=== PATIENT | female | born 2000 | race Two or more races ===

== ENCOUNTER → 2024-01-14 | Outpatient (CLI) | payer BC ==
[2024-01-14 08:14] LABS: Basophils # (auto) 0.1 10 ^3/uL (0-0.2); Basophils % (auto) 0.9 % (0.0-2.0); Eosinophils # (auto) 0.4 10 ^3/uL (0-0.8); Hematocrit 39.6 % (36.0-46.0); Hemoglobin 13.1 g/dL (12.2-16.2); Lymphocytes # (auto) 1.6 10 ^3/uL (0.4-5.4); Lymphocytes % (auto) 20.9 % (10.0-50.0); Mean Corpuscular Hemoglobin 27.6 pg (28.0-32.0); Mean Corpuscular Hgb Conc. 33.1 g/dL (32.0-36.0); Mean Corpuscular Volume 83.2 fL (80.0-100.0); Monocytes # (auto) 0.5 10 ^3/uL (0-1.3); Monocytes % (auto) 7.2 % (0.0-12.0); Neutrophils # (auto) 4.9 10 ^3/uL (1.6-8.6); Red Blood Cells 4.76 10^6/uL (4.0-5.20); Red Cell Distribution Width 13.6 % (11.8-14.3); Urine Bacteria NONE SEEN /hpf (None Seen); Urine Blood Negative /uL (Negative); Urine Clarity Clear (Clear); Urine Color Yellow (Yellow); Urine Mucus FEW (None Seen); Urine Protein, UAD Negative (Negative); Urine Specific Gravity 1.021 (1.001-1.035); Urine Urobilinogen Normal (Negative); Urine WBC 1 /hpf (0 - 5); Urine pH 6.5 (5.0-8.0); White Blood Cell 7.4 10^3/uL (4.4-10.8)
[2024-01-14 08:58] LABS: Alanine Aminotransferase 21 U/L (7-40); Alkaline Phosphatase 94 U/L (46-116); Anion Gap 6 (5-15); BUN/Creatinine Ratio 15.1 (10.0-20.0); Blood Urea Nitrogen 11 mg/dL (9-23); Calcium 9.7 mg/dL (8.5-10.1); Carbon Dioxide 26 mmol/L (20-30); Chloride 107 mmol/L (98-107); Glucose 97 mg/dL (74-106); LDL Cholesterol 95 mg/dL (< 100); Sodium 139 mmol/L (136-145); Triglycerides 45 mg/dL (< 150)
[2024-01-14 08:59] LABS: Albumin 4.8 g/dL (3.2-4.8); Aspartate Aminotransferase 25 U/L (13-40); Bilirubin, Total 0.3 mg/dL (0.2-1.0); HDL Cholesterol 52 mg/dL (40-59); Total Protein 7.7 g/dL (5.7-8.2)
[2024-01-14 09:00] LABS: % Iron Saturation 14.2 % (15-50); Ferritin 19.2 ng/mL (10-291); Follicle Stimulating Hormone 5.8 IU/L (SEE BELOW); Leuteinizing Hormone 17.6 IU/L
[2024-01-14 09:01] LABS: Folate (Folic Acid) 12.17 ng/mL (>5.38)
[2024-01-14 09:14] LABS: Cholesterol 139 mg/dL (< 200)
[2024-01-15 08:06] LABS: Cancer Antigen (CA) 125 9.2 U/mL (0.0-38.1); Estradiol 48.9 pg/mL (.); Testosterone 47 ng/dL (13-71)
== END | disposition home or self-care (01) ==
LOC: LAB 07:36
PROVIDERS: ATTEND Obstetrics & Gynecology
DX: Z00.00 Encounter for general adult medical examination without abnormal findings (principal); N63.20 Unspecified lump in the left breast, unspecified quadrant; N39.0 Urinary tract infection, site not specified; Z15.01 Genetic susceptibility to malignant neoplasm of breast; Z80.41 Family history of malignant neoplasm of ovary
CPT/HCPCS: 36415; 80053; 80061; 81001; 82306; 82607; 82670; 82728; 82746; 83001; 83002; 83036; 83540; 83550; 84402; 84403; 84443; 85025; 86304; 87086

== ENCOUNTER 2024-03-05 07:56 | Emergency (ER) | payer BC, OTHER ==
[~2024-03-05] VITALS: Ht 170.2 cm; Wt 90.4 kg
[2024-03-05] MEDS ORDERED: PRED20TA2 PO (10:55)
[2024-03-05] MEDS ORDERED: BENZ100C97 PO (10:55)
[2024-03-05] MEDS ORDERED: DOXY1CAP57 PO (10:55)
[2024-03-05 11:09] VITALS: BP 130/87; PULSE 90; RESP 20; TEMP 98; O2SAT 96
== END 2024-03-05 11:17 | disposition home or self-care (01) ==
LOC: ER 07:56
DX: J20.9 Acute bronchitis, unspecified (principal); R07.89 Other chest pain
CPT/HCPCS: 71046

== ENCOUNTER → 2024-05-09 | Outpatient (CLI) | payer BC ==
[~2024-05-09] MED LIST: BENZ100C97 PO; DOXY1CAP57 PO; PRED20TA2 PO
== END | disposition home or self-care (01) ==
LOC: LAB 12:41
PROVIDERS: ATTEND Obstetrics & Gynecology
DX: Z33.1 Pregnant state, incidental (principal); Z72.51 High risk heterosexual behavior
CPT/HCPCS: 36415; 84702

== ENCOUNTER → 2024-06-28 | Outpatient (CLI) | payer BC | END | disposition home or self-care (01) | LOC: LAB 15:32 | PROVIDERS: ATTEND Obstetrics & Gynecology | DX: Z34.00 Encounter for supervision of normal first pregnancy, unspecified trimester (principal) | CPT/HCPCS: 36415; 84702 ==

== ENCOUNTER → 2024-07-03 | Outpatient (CLI) | payer BC, MEDICAID ==
[~2024-07-03] VITALS: Ht 165.1 cm; Wt 83.0 kg
[~2024-07-03] MED LIST changes: +ALB5IS NEB; +ALBUAER3 IN; +BUDE1AER6 IN; +PAR20T PO
[2024-07-03 10:14] LABS: Basophils # (auto) 0.1 10 ^3/uL (0-0.2); Basophils % (auto) 0.9 % (0.0-2.0); Eosinophils # (auto) 0.3 10 ^3/uL (0-0.8); Eosinophils % (auto) 4.6 % (0.0-7.0); Hematocrit 40.8 % (36.0-46.0); Hemoglobin 13.3 g/dL (12.2-16.2); Lymphocytes # (auto) 1.7 10 ^3/uL (0.4-5.4); Lymphocytes % (auto) 25.6 % (10.0-50.0); Mean Corpuscular Hemoglobin 27.6 pg (28.0-32.0); Mean Corpuscular Hgb Conc. 32.6 g/dL (32.0-36.0); Mean Corpuscular Volume 84.6 fL (80.0-100.0); Monocytes # (auto) 0.6 10 ^3/uL (0-1.3); Monocytes % (auto) 8.5 % (0.0-12.0); Neutrophils # (auto) 4.1 10 ^3/uL (1.6-8.6); Neutrophils % (auto) 60.4 % (37.0-80.0); Nucleated Red Blood Cells % 0.1 %; Platelet Count (auto) 381 10^3/uL (140-450); Red Blood Cells 4.82 10^6/uL (4.0-5.20); Red Cell Distribution Width 14.5 % (11.8-14.3); White Blood Cell 6.8 10^3/uL (4.4-10.8)
[2024-07-03 10:27] LABS: Alanine Aminotransferase 28 U/L (7-40); Albumin 4.5 g/dL (3.2-4.8); Alkaline Phosphatase 59 U/L (46-116); Anion Gap 2 (5-15); Aspartate Aminotransferase 30 U/L (13-40); Bilirubin, Total 0.5 mg/dL (0.2-1.0); Calcium 9.8 mg/dL (8.7-10.4); Carbon Dioxide 28 mmol/L (20-30); Chloride 108 mmol/L (98-107); Glucose 96 mg/dL (74-106); Potassium 3.6 mmol/L (3.5-5.1); Sodium 138 mmol/L (136-145); Total Protein 7.2 g/dL (5.7-8.2)
[2024-07-03 10:36] LABS: Blood Urea Nitrogen < 5 mg/dL (9-23)
[2024-07-03 10:54] LABS: INR 1.01 (0.9-1.15); Partial Thromboplastin Time 25.2 SEC (24.5-34.5); Prothrombin Time 10.7 sec (9.3-11.8)
== END | disposition home or self-care (01) ==
LOC: LAB 09:16 → EDSTATUS 08-02 08:30
PROVIDERS: ATTEND Surgery
DX: N63.21 Unspecified lump in the left breast, upper outer quadrant (principal); Z53.8 Procedure and treatment not carried out for other reasons; Z79.899 Other long term (current) drug therapy; Z88.0 Allergy status to penicillin; Z88.8 Allergy status to other drugs, medicaments and biological substances; Z80.3 Family history of malignant neoplasm of breast
CPT/HCPCS: 36415; 80053; 84702; 85025; 85610; 85730

== ENCOUNTER → 2024-10-31 | Outpatient (CLI) | payer BC ==
[~2024-10-31] MED LIST changes: -BENZ100C97 PO; -DOXY1CAP57 PO; -PRED20TA2 PO
[2024-10-31 11:48] LABS: % Iron Saturation 10.2 % (15-50); Alanine Aminotransferase 27 U/L (7-40); Alkaline Phosphatase 90 U/L (46-116); Anion Gap 6 (5-15); Aspartate Aminotransferase 21 U/L (13-40); BUN/Creatinine Ratio 14.1 (10.0-20.0); Blood Urea Nitrogen 10 mg/dL (9-23); Calcium 10.1 mg/dL (8.7-10.4); Carbon Dioxide 27 mmol/L (20-31); Chloride 106 mmol/L (98-107); Glucose 94 mg/dL (74-106); Potassium 3.9 mmol/L (3.5-5.1); Sodium 139 mmol/L (136-145)
[2024-10-31 11:49] LABS: Bilirubin, Total 0.3 mg/dL (0.2-1.0); Total Protein 7.9 g/dL (5.7-8.2)
[2024-10-31 11:51] LABS: Follicle Stimulating Hormone 10.04 IU/L (SEE BELOW)
[2024-10-31 11:52] LABS: Basophils # (auto) 0.1 10 ^3/uL (0-0.2); Eosinophils # (auto) 0.2 10 ^3/uL (0-0.8); Eosinophils % (auto) 3.5 % (0.0-7.0); Ferritin 9.2 ng/mL (10-291); Folate (Folic Acid) 14.56 ng/mL (>5.38); Hematocrit 39.3 % (36.0-46.0); Hemoglobin 13.4 g/dL (12.2-16.2); Lymphocytes # (auto) 1.8 10 ^3/uL (0.4-5.4); Lymphocytes % (auto) 26.5 % (10.0-50.0); Mean Corpuscular Volume 82.3 fL (80.0-100.0); Monocytes # (auto) 0.5 10 ^3/uL (0-1.3); Monocytes % (auto) 6.8 % (0.0-12.0); Neutrophils # (auto) 4.2 10 ^3/uL (1.6-8.6); Neutrophils % (auto) 62.2 % (37.0-80.0); Platelet Count (auto) 394 10^3/uL (140-450); Prolactin 11.18 ng/mL (2.8-29.2); Red Blood Cells 4.78 10^6/uL (4.0-5.20); Red Cell Distribution Width 13.9 % (11.8-14.3); White Blood Cell 6.8 10^3/uL (4.4-10.8)
[2024-10-31 11:53] LABS: Albumin 4.9 g/dL (3.2-4.8); Beta HCG, Quantitative 1.5 mIU/mL (1.5-4.2); Free T4 (Free Thyroxine) 1.12 ng/dL (0.89-1.76); Thyroid Stimulating Hormone 2.13 uIU/mL (0.55-4.78)
[2024-11-01 07:07] LABS: RPR Non Reactive (Non Reactive)
[2024-11-01 08:06] LABS: Estradiol 79.4 pg/mL (.); Testosterone 75 ng/dL (13-71)
== END | disposition home or self-care (01) ==
LOC: LAB 11:01
PROVIDERS: ATTEND Obstetrics & Gynecology
DX: Z11.3 Encounter for screening for infections with a predominantly sexual mode of transmission (principal); E28.2 Polycystic ovarian syndrome; Z87.42 Personal history of other diseases of the female genital tract
CPT/HCPCS: 36415; 80053; 82607; 82626; 82670; 82728; 82746; 83001; 83002; 83036; 83540; 83550; 84144; 84146; 84402; 84403; 84439; 84443; 84702; 85025; 86592; 86703; 86850; 86900; 86901; 87902

== ENCOUNTER 2025-02-14 06:03 | Day surgery (SDC) | payer BC, MEDICAID ==
[2025-02-12 12:37] LABS: Basophils # (auto) 0.1 10 ^3/uL (0-0.2); Eosinophils # (auto) 0.3 10 ^3/uL (0-0.8); Hemoglobin 12.9 g/dL (12.2-16.2); Lymphocytes # (auto) 1.8 10 ^3/uL (0.4-5.4)
[2025-02-12 12:41] LABS: Basophils % (auto) 0.6 % (0.0-2.0); Eosinophils % (auto) 3.7 % (0.0-7.0); Hematocrit 39.1 % (36.0-46.0); Lymphocytes % (auto) 22.1 % (10.0-50.0); Mean Corpuscular Hemoglobin 26.5 pg (28.0-32.0); Mean Corpuscular Volume 80.4 fL (80.0-100.0); Monocytes # (auto) 0.4 10 ^3/uL (0-1.3); Monocytes % (auto) 5.3 % (0.0-12.0); Neutrophils # (auto) 5.6 10 ^3/uL (1.6-8.6); Neutrophils % (auto) 68.3 % (37.0-80.0); Nucleated Red Blood Cells % 0.1 %; Platelet Count (auto) 399 10^3/uL (140-450); Red Blood Cells 4.86 10^6/uL (4.0-5.20); Red Cell Distribution Width 14.8 % (11.8-14.3); White Blood Cell 8.2 10^3/uL (4.4-10.8)
[2025-02-12 12:42] LABS: Urine Bacteria FEW /hpf (None Seen); Urine Blood TRACE /uL (Negative); Urine Clarity Turbid (Clear); Urine Color Yellow (Yellow); Urine Mucus FEW (None Seen); Urine Protein, UAD TRACE (Negative); Urine Squamous Epithelial Cell MOD /hpf (<5); Urine Urobilinogen Normal (Negative); Urine WBC 2 /HPF (0-5); Urine pH 5.5 (5.0-9.0)
[2025-02-12 13:11] LABS: INR 1.02 (0.9-1.15); Partial Thromboplastin Time 27.9 SEC (24.5-34.5); Prothrombin Time 10.8 sec (9.3-11.8)
[2025-02-12 13:39] LABS: Alanine Aminotransferase 22 U/L (7-40); Alkaline Phosphatase 79 U/L (46-116); Anion Gap 7 (5-15); Aspartate Aminotransferase 17 U/L (13-40); BUN/Creatinine Ratio 12.5 (10.0-20.0); Blood Urea Nitrogen 9 mg/dL (9-23); Carbon Dioxide 25 mmol/L (20-31); Potassium 3.7 mmol/L (3.5-5.1); Sodium 139 mmol/L (136-145); Total Protein 8.1 g/dL (5.7-8.2)
[2025-02-12 13:40] LABS: Bilirubin, Total 0.4 mg/dL (0.2-1.0)
[2025-02-12 13:45] LABS: Albumin 5.2 g/dL (3.2-4.8); Chloride 107 mmol/L (98-107); Glucose 126 mg/dL (74-106)
[~2025-02-14] VITALS: Ht 165.1 cm; Wt 86.2 kg
[~2025-02-14 06:03] MED LIST changes: -ALB5IS NEB; +CETI10TA2 PO; +ETON68IM3 SC; -PAR20T PO
[2025-02-14] MEDS ORDERED: ceFAZolin 2 GM/D5W100ml 0 ML IV ONE (06:24)
[2025-02-14] MEDS ORDERED: levoFLOXacin 500MG 100 ML IV ONE (06:31)
[2025-02-14] MEDS ORDERED: KETAMINE 50mg/ML 1ml syringe ONE (07:00)
[2025-02-14] MEDS ORDERED: SODIUM CHLORIDE LOCK 10 ML ONE (07:01)
[2025-02-14] MEDS ORDERED: BUPIVACAINE 0.5% P/F INJ 10 ML VIAL ONE (07:01)
[2025-02-14] MEDS ORDERED: LIDOCAINE HCL 2% TOP JELLY 5ML TOP ONE (07:01)
[2025-02-14] MEDS ORDERED: MIDAZOLAM HCL 2MG/2ML 2ml VIAL (1mg/ml) ONE (07:01)
[2025-02-14] MEDS ORDERED: ONDANSETRON HCL 4 MG/2 ML VIAL ONE (07:01)
[2025-02-14] MEDS ORDERED: PROPOFOL 10 MG/ML 20 ML IV ONE (07:01)
[2025-02-14] MEDS ORDERED: LIDOCAINE 1% INJ PF 5ML AMP ONE (07:01)
[2025-02-14] MEDS ORDERED: HYDROmorphone HCL 2 MG/ML VL/or syr ONE (07:01)
[2025-02-14] MEDS ORDERED: fentaNYL CITRATE 100 MCG/2 ML VL ONE (07:01)
[2025-02-14] MEDS ORDERED: DexAMETHasone SOD PHOS 10MG/1ML VIAL INJ ONE (07:01)
[2025-02-14] MEDS ORDERED: LIDOCAINE W/ EPINEPHRINE 1% 20ML VIAL ONE (07:01)
[2025-02-14] MEDS ORDERED: SUCCINYLCHOLINE CHLORIDE 20 MG/ML 10ML VIAL IV ONE (07:18)
[2025-02-14 08:20] VITALS: PULSE 87; RESP 14; TEMP 98.4; O2SAT 99
--- NOTE | 2025-02-14 08:42 | DVHOP ---
DATE OF SURGERY: 02/14/2025 PREOPERATIVE DIAGNOSIS: Left breast mass. POSTOPERATIVE DIAGNOSIS: Left breast mass. SURGEON: Ry Howe MD. FIELD SERVICES ANALYST: Jeremias Duong. ANESTHESIA: General endotracheal. ANESTHESIOLOGIST: Dr. Merlos. PROCEDURE: Excision of mass of left breast. DESCRIPTION OF PROCEDURE: Under general anesthesia, with the patient's skin prepped and draped following localization of the mass by the patient prior to the operation and marking of the skin prior of the operation, the incision was made over the palpable mass within the left breast, in the lateral aspect of the left upper quadrant, within the axillary tail of Ortiz. The lesion was palpated through the incision and grasped with an Allis forcep. The lesion and surrounding breast tissue was excised and submitted for histopathologic examination. It had the appearance of a fibroadenoma. The wound was then irrigated, hemostasis meticulously accomplished. A large vessel that was adjacent to the lesion was ligated with a 2-0 suture. Following complete hemostasis, the wound was approximated using 2-0 Monocryl sutures, subcuticular suture, and Dermabond glue and Steri-Strips were used for approximation of the skin. The patient remained stable throughout the procedure and left the operating room following an accurate needle and sponge count. Her mother Socorro was thoroughly informed by phone. Ry Howe MD PF/ARV TID: [id number] RECEIPT: [id number]
[2025-02-14] MEDS ORDERED: MORPHINE SULFATE 4 MG/ML SYR/VIAL IV PRN (08:45)
[2025-02-14] MEDS ORDERED: HYDROmorphone HCL 2 MG/ML VL/or syr IV PRN ×2 (08:45)
[2025-02-14 09:20] VITALS: BP 157/100; PULSE 93; RESP 14; O2SAT 10
[2025-02-14] MEDS ORDERED: KETOROLAC TROMETH 30 MG/ML 1ML VIAL IV ONE (10:00)
[2025-02-14] MEDS ORDERED: ONDANSETRON HCL 4 MG/2 ML VIAL IV ONE (10:00)
[2025-02-14] MEDS ORDERED: MORPHINE SULFATE INJ 2 MG/ml SYRG IV PRN (10:30)
== END 2025-02-14 09:30 | disposition home or self-care (01) ==
LOC: EEVIPCON → SUR 06:03
PROVIDERS: ATTEND Surgery
DX: N63.21 Unspecified lump in the left breast, upper outer quadrant (principal); D24.2 Benign neoplasm of left breast; J45.909 Unspecified asthma, uncomplicated; G47.33 Obstructive sleep apnea (adult) (pediatric); F41.8 Other specified anxiety disorders; F31.9 Bipolar disorder, unspecified; E66.9 Obesity, unspecified; Z68.31 Body mass index [BMI] 31.0-31.9, adult; Z79.899 Other long term (current) drug therapy; Z98.890 Other specified postprocedural states; Z87.891 Personal history of nicotine dependence; Z88.0 Allergy status to penicillin; Z88.8 Allergy status to other drugs, medicaments and biological substances
CPT/HCPCS: 19125; 36415; 80053; 81001; 84702; 85025; 85610; 85730; 88305; 88331; J0330; J1100; J1171; J1956; J2250; J2405; J2704; J3010; J3490

== ENCOUNTER → 2025-05-17 | Outpatient (CLI) | payer BC, MEDICAID ==
[2025-05-17 08:42] LABS: Hematocrit 41.7 % (36.0-46.0); Hemoglobin 13.7 g/dL (12.2-16.2); Mean Corpuscular Hemoglobin 26.5 pg (28.0-32.0); Mean Corpuscular Volume 80.5 fL (80.0-100.0); Nucleated Red Blood Cells % 0.1 %
[2025-05-17 08:57] LABS: Alanine Aminotransferase 25 U/L (7-40); Alkaline Phosphatase 96 U/L (46-116); Calcium 9.9 mg/dL (8.7-10.4); Carbon Dioxide 20 mmol/L (20-31); Triglycerides 100 mg/dL (< 150)
[2025-05-17 08:58] LABS: Anion Gap 11 (5-15); BUN/Creatinine Ratio 11.9 (10.0-20.0); Cholesterol 131 mg/dL (< 200); HDL Cholesterol 51 mg/dL (40-59); Potassium 4.1 mmol/L (3.5-5.1); Sodium 142 mmol/L (136-145); Total Protein 7.5 g/dL (5.7-8.2)
[2025-05-17 09:06] LABS: Albumin 4.8 g/dL (3.2-4.8); Bilirubin, Total 0.2 mg/dL (0.2-1.0); Blood Urea Nitrogen 8 mg/dL (9-23); Chloride 111 mmol/L (98-107); Glucose 108 mg/dL (74-106)
[2025-05-17 11:21] LABS: Ferritin 8.3 ng/mL (10-291)
[2025-05-18 11:49] LABS: Hepatitis A Total Antibody Positive (Negative); Hepatitis B Surface Antigen Negative (Negative); Hepatitis C Antibody Negative (Negative)
[2025-05-19 08:07] LABS: Chlamydia Trachomatis, NAA Negative (Negative); Neisseria gonorrhoeae, NAA Negative (Negative)
== END | disposition home or self-care (01) ==
LOC: LAB 08:21
PROVIDERS: ATTEND Licensed Practical Nurse
DX: Z13.1 Encounter for screening for diabetes mellitus (principal); Z13.6 Encounter for screening for cardiovascular disorders; F32.0 Major depressive disorder, single episode, mild; E55.9 Vitamin D deficiency, unspecified; Z00.01 Encounter for general adult medical examination with abnormal findings; Z13.220 Encounter for screening for lipoid disorders; Z11.3 Encounter for screening for infections with a predominantly sexual mode of transmission
CPT/HCPCS: 36415; 80053; 80061; 82043; 82306; 82607; 82728; 83036; 84443; 85025; 86703; 86704; 86706; 86708; 86780; 86803; 87340

== ENCOUNTER 2025-06-01 12:10 | Emergency (ER) | payer BC, MEDICAID ==
[~2025-06-01] VITALS: Ht 165.1 cm; Wt 92.6 kg
[2025-06-01 12:30] VITALS: BP 139/95; TEMP 99
--- NOTE | 2025-06-01 13:51 | ED.PDOC ---
GI ASSESSMENT HPI Comments 24-year-old female with PMHx HTN presents with a chief complaint of abdominal pain with associated black stool, rectal bleeding, nausea and vomiting. Patient mentions that she gets her abdominal pain when she feels the need to have a bowel movement. Patient also mentions that her family has a history of colon cancer. Patient reports that sometimes her stool is bright red and bloody and other times it is black in color. Chief Complaint: GI Bleed Time Seen by MD: 13:19 Primary Care Provider: [facility] Reviewed Notes: Medications, Allergies Allergies: Coded Allergies: Penicillins (Unverified Allergy, Intermediate, Rash,Hives , 02/12/25) Amoxicillin (Verified Allergy, Unknown, 02/11/24) Home Meds Reported Medications Etonogestrel (NEXPLANON) Unknown Strength Imp, SC, IMP 02/12/25 Cetirizine Hcl (Kls Aller-Tess) Unknown Strength Tab, PO DAILY, #30 TAB 3 Refills 02/12/25 Doqtqunhqg-Twyjcedpshqjqa-Nldm ([employer] 160-9-4.8 Mcg/Act) Unknown Strength Aer, IN, AER 08/01/24 Albuterol Sulfate (VENTOLIN MDI) Unknown Strength Ih, IN PRN, INH 08/01/24 Information Source: Patient Mode of Arrival: Ambulatory Timing: Months Duration: Intermittent Prehospital treatment: None Vomitus: Food Particles Stool: Blood Streaked, Black Severity: Moderate Recent: None Recent Hx of: None Pain Location: Diffuse Associated sign and symptoms: Nausea, Vomiting, Melena, Abdominal Pain, Blood in Stool Past Medical History PAST MEDICAL HISTORY: Denies Surgical History: Denies all surgeries BUILDING MAINTENANCE MECHANIC History: No Pertinent BUILDING MAINTENANCE MECHANIC History Family History Family History: Reviewed,noncontributory to illness Social History Smoker: Non-Smoker Alcohol: Denies ETOH Use Drugs: Denies Drug Use Lives In: Home Constitutional: denies: chills, diaphoresis, fatigue, fever, malaise, sweats, weakness, others EENTM: denies: blurred vision, double vision, ear bleeding, ear discharge, ear drainage, ear pain, ear ringing, eye pain, eye redness, hearing loss, mouth pain, mouth swelling, nasal discharge, nose bleeding, nose congestion, nose pain, photophobia, tearing, throat pain, throat swelling, voice changes, others Respiratory: denies: cough, hemoptysis, orthopnea, SOB at rest, shortness of breath, SOB with excertion, stridor, wheezing, others Cardiovascular: denies: chest pain, dizzy spells, diaphoresis, Dyspnea on exertion, edema, irregular heart beat, left arm pain, lightheadedness, palpitations, PND, syncope, others Gastrointestinal: reports: abdominal pain, melena, nausea, rectal bleeding, vo miting; denies: abdomen distended, blood streaked bowels, constipated, diarrhea, dysphagia, difficulty swallowing, hematemesis, poor appetite, poor fluid intake, rectal pain, others Genitourinary: denies: abnormal vagina bleeding, burning, dyspareunia, dysuria, flank pain, frequency, hematuria, incontinence, pain, , vagina discharge, urgency, others Neurological: denies: dizziness, fainting, headache, left sided numbness, left sided weakness, numbness, paresthesia, pre-existing deficit, right sided numbness, right sided weakness, seizure, speech problems, tingling, tremors, weakness, others Musculoskeletal: denies: back pain, gout, joint pain, joint swelling, muscle pain, muscle stiffness, neck pain, others Integumetry: denies: bruises, change in color, change in hair/nails, dryness, laceration, lesions, lumps, rash, wounds, others Allergic/Immunocompromised: denies: Difficulty Healing, Frequent Infections, Hives, Itching, others Hematologic/Lymphatic: denies: anemia, blood clots, easy bleeding, easy bruising, swollen glands, others Endocrine: denies: excessive hunger, excessive sweating, excessive thirst, excessive urination, flushing, intolerance to cold, intolerance to heat, unexplained weight gain, unexplained weight loss, others Psychiatric: denies: anxiety, bipolar disorder, depression, hopeless, panic disorder, schizophrenia, sleepless, suicidal, others All Other Systems: Reviewed and Negative Physical Exam General Appearance: No Apparent Distress, Normal HEENT: Normal ENT Inspection, Pharynx Normal, TMs Normal Neck: Full Range of Motion, Non-Tender, Normal, Normal Inspection Respiratory: Chest Non-Tender, Lungs Clear, No Accessory Muscle Use, No Respiratory Distress, Normal Breath Sounds Cardiovascular: No Edema, No JVD, No Murmur, No Gallop, Normal Peripheral Pulses, Regular Rate/Rhythm Breast Exam: Deferred Gastrointestinal: No Organomegaly, Non Tender, No Pulsatile Mass, Normal Bowel Sounds, Soft Genitalia: Deferred Pelvic: Deferred Rectal: Deferred Extremities: No calf tenderness, Normal capillary refill, Normal inspection, Normal range of motion, Non-tender, No pedal edema Musculoskeletal : Apperance: Normal Neurologic: Alert, inventory control supervisor II-XII nml as Tested, No Motor Deficits, Normal Affect, Normal Mood, No Sensory Deficits Cerebellar Function: Normal Reflexes: Normal Skin: Dry, Normal Color, Warm Lymphatic: No Adenopathy Was a procedure done? Was a procedure done?: No GI differential Dx Differential Diagnosis: Gastritis/PUD, Gastroenteritis, GI hemorrhage, UTI X-Ray, Labs, Meds, VS Vital Signs Date Time Temp Pulse Resp B/P (MAP) Pulse Ox O2 Delivery O2 Flow Rate FiO2 06/01/25 14:27 74 16 96 Room Air* 0 21 06/01/25 12:30 99.0 96 16 139/95 (110) 98 99.0 Lab Test 06/01/25 13:57 06/01/25 12:57 Range/Units White Blood Count 6.0 4.4-10.8 10^3/uL Red Blood Count 4.77 4.0-5.20 10^6/uL Hemoglobin 12.7 12.2-16.2 g/dL Hematocrit 38.5 36.0-46.0 % Mean Corpuscular Volume 80.9 80.0-100.0 fL Mean Corpuscular Hemoglobin 26.8 L 28.0-32.0 pg Mean Corpuscular Hemoglobin Concent 33.1 32.0-36.0 g/dL Red Cell Distribution Width 15.0 H 11.8-14.3 % Platelet Count 377 140-450 10^3/uL Mean Platelet Volume 7.1 6.9-10.8 fL Neutrophils (%) (Auto) 61.2 37.0-80.0 % Lymphocytes (%) (Auto) 25.3 10.0-50.0 % Monocytes (%) (Auto) 8.6 0.0-12.0 % Eosinophils (%) (Auto) 4.0 0.0-7.0 % Basophils (%) (Auto) 0.9 0.0-2.0 % Neutrophils # (Auto) 3.7 1.6-8.6 10 ^3/uL Lymphocytes # (Auto) 1.5 0.4-5.4 10 ^3/uL Monocytes # (Auto) 0.5 0-1.3 10 ^3/uL Eosinophils # (Auto) 0.2 0-0.8 10 ^3/uL Basophils # (Auto) 0.1 0-0.2 10 ^3/uL Nucleated Red Blood Cells 0.0 % Sodium Level 142 136-145 mmol/L Potassium Level 4.2 3.5-5.1 mmol/L Chloride Level 108 H 98-107 mmol/L Carbon Dioxide Level 27 20-31 mmol/L Anion Gap 7 5-15 Blood Urea Nitrogen 9 9-23 mg/dL Creatinine 0.75 0.550-1.02 mg/dL Glomerular Filtration Rate Calc 115 >90 mL/min BUN/Creatinine Ratio 12.0 10.0-20.0 Serum Glucose 88 74-106 mg/dL Calcium Level 10.0 8.7-10.4 mg/dL Urine Color Yellow Yellow Urine Clarity Clear Clear Urine pH 6.0 5.0-9.0 Urine Specific Royal 1.037 H 1.001-1.035 Urine Protein Trace H Negative Urine Ketones Negative Negative Urine Blood Negative Negative /uL Urine Nitrite Negative Negative Urine Bilirubin Negative Negative Urine Urobilinogen Normal Negative mg/dL Urine Leukocyte Esterase Negative Negative /uL Urine RBC 6 0 - 4 /hpf Urine Microscopic WBC 3 0-5 /HPF Urine Squamous Epithelial Cells Few <5 /hpf Urine Bacteria Few H None Seen /hpf Urine Mucus Few None Seen Urine Glucose Normal Normal mg/dL Urine Test Negative Negative Time of 1ST Reevaluation: 13:49 Reevaluation 1ST: Unchanged Patient Education/Counseling: Diagnosis, Treatment, Need For Follow Up Family Education/Counseling: No Family Present SEPSIS Sepsis Screen Vital Signs Date Time Temp Pulse Resp B/P (MAP) Pulse Ox O2 Delivery O2 Flow Rate FiO2 06/01/25 14:27 74 16 96 Room Air* 0 21 06/01/25 12:30 99.0 96 16 139/95 (110) 98 99.0 Laboratory Tests Test 06/01/25 13:57 White Blood Count 6.0 10^3/uL (4.4-10.8) Departure 1 Departure Time of Disposition: 05:43 (Patient's concerning for GI bleed. Patient reported that she had emergency and eloped from the emergency room) Impression: Primary Impression: Black stool Additional Impression: Epigastric pain Disposition: 07 LEFT AWOL/ELOPED Condition: Serious Critical Care Note Critical Care Time?: No Stability Stability form required: No Heart Score Heart Score: Heart Score Response (Comments) Value History N/A 0 EKG N/A 0 Age N/A 0 Risk Factors N/A 0 Troponin N/A 0 Total 0 I personally scribed for CONSTANTINO CASTRO MD ([email or web address]) on 06/01/25 at 13:51. Electronically submitted by Faustino Baires ([email or web address]). CONSTANTINO CASTRO MD Jun 01, 2025 13:51
[2025-06-01 13:59] LABS: Urine Protein, UAD TRACE (Negative)
[2025-06-01] MEDS: SODIUM CHLORIDE 0.9% 1,000 ML IV ONE (14:15)
[2025-06-01] MEDS: ONDANSETRON HCL 4 MG/2 ML VIAL IV ONE (14:15)
[2025-06-01] MEDS: PANTOPRAZOLE 40 MG/10 ML VIAL INJ IV ONE (14:15)
[2025-06-01 14:16] LABS: Hematocrit 38.5 % (36.0-46.0); Hemoglobin 12.7 g/dL (12.2-16.2); Mean Corpuscular Hemoglobin 26.8 pg (28.0-32.0); Mean Corpuscular Volume 80.9 fL (80.0-100.0); Nucleated Red Blood Cells % 0.0 %
[2025-06-01 14:20] LABS: Potassium 4.2 mmol/L (3.5-5.1); Sodium 142 mmol/L (136-145)
[2025-06-01 14:21] LABS: Anion Gap 7 (5-15); Carbon Dioxide 27 mmol/L (20-31)
[2025-06-01 14:22] LABS: Calcium 10.0 mg/dL (8.7-10.4)
[2025-06-01 14:25] LABS: Chloride 108 mmol/L (98-107)
[2025-06-01 14:26] LABS: Glucose 88 mg/dL (74-106)
[2025-06-01 14:27] VITALS: PULSE 74; RESP 16; O2SAT 96
[2025-06-01 14:27] LABS: BUN/Creatinine Ratio 12.0 (10.0-20.0); Blood Urea Nitrogen 9 mg/dL (9-23)
== END 2025-06-01 15:03 | disposition left against medical advice (07) ==
LOC: EEVIPCON 12:10 → ER 12:10
DX: R10.9 Unspecified abdominal pain (principal); R11.2 Nausea with vomiting, unspecified; K92.1 Melena; I10 Essential (primary) hypertension; Z79.899 Other long term (current) drug therapy; Z88.0 Allergy status to penicillin
CPT/HCPCS: 36415; 80048; 81001; 81025; 85025; 96361; 96374; 96375; 99284; J2405; J2470; J7030

== ENCOUNTER 2025-08-17 11:28 | Day surgery (SDC) | payer BC, MEDICAID ==
[2025-08-16 08:15] LABS: Hemoglobin 13.3 g/dL (12.2-16.2); Nucleated Red Blood Cells % 0.0 %
[2025-08-16 08:20] LABS: Hematocrit 39.6 % (36.0-46.0); Mean Corpuscular Hemoglobin 27.0 pg (28.0-32.0); Mean Corpuscular Volume 80.4 fL (80.0-100.0)
[2025-08-16 08:23] LABS: Urine Budding Yeast OCCASIONAL /hpf (None Seen); Urine Hyphae Yeast PRESENT /hpf; Urine Protein, UAD Negative (Negative)
[2025-08-16 08:30] LABS: INR 1.0 (0.9-1.15); Partial Thromboplastin Time 27.6 SEC (24.5-34.5); Prothrombin Time 10.6 sec (9.3-11.8)
[2025-08-16 08:37] LABS: Alanine Aminotransferase 24 U/L (7-40); Alkaline Phosphatase 89 U/L (46-116); Anion Gap 7 (5-15); BUN/Creatinine Ratio 9.9 (10.0-20.0); Bilirubin, Total 0.4 mg/dL (0.2-1.0); Calcium 9.7 mg/dL (8.7-10.4); Carbon Dioxide 26 mmol/L (20-31); Glucose 102 mg/dL (74-106); Potassium 4.6 mmol/L (3.5-5.1); Sodium 143 mmol/L (136-145); Total Protein 8.2 g/dL (5.7-8.2)
[2025-08-16 08:47] LABS: Albumin 5.0 g/dL (3.2-4.8); Blood Urea Nitrogen 8 mg/dL (9-23); Chloride 110 mmol/L (98-107)
[~2025-08-17] VITALS: Ht 165.1 cm; Wt 86.2 kg
[~2025-08-17 11:28] MED LIST changes: -ETON68IM3 SC; +LISI2.5T47 PO; +SEMA0.5I SC
[2025-08-17] MEDS ORDERED: PROPOFOL 10 MG/ML 20 ML IV ONE (13:03)
[2025-08-17] MEDS ORDERED: fentaNYL CITRATE 100 MCG/2 ML VL ONE (13:03)
[2025-08-17 13:43] VITALS: PULSE 88; RESP 12; TEMP 97.6; O2SAT 97
[2025-08-17 14:13] VITALS: BP 112/75; PULSE 66; RESP 12; O2SAT 96
--- NOTE | 2025-08-17 15:39 | DVHOP2 ---
Operative Report DATE OF OPERATION: 08/17/25 PROCEDURE: Upper Endoscopy with biopsy. PREOPERATIVE INDICATION: The patient is a 24 -year-old female undergoing endoscopy for epigastric pain nausea vomiting and dark stools POSTOPERATIVE DIAGNOSES: 1. She had a 2 cm sliding-type hiatal hernia with mild grade a erosive esoph agitis 2. Mild gastritis otherwise normal examination up to the 2nd and 3rd part of the duodenum PROCEDURE PERFORMED BY: Ariana Roland GI NURSE: Mae SCOPE: Olympus videoendoscope. ASA CLASS: 2 PREOPERATIVE MEDICATIONS: Mac anesthesia PROCEDURE IN DETAIL: After obtaining an informed consent, the patient was placed on left lateral decubitus position. The patient was then sedated with the above medications. A bite block was placed between her teeth. The endoscope was then passed through the oropharynx, into the esophagus, and through the stomach and pylorus up to the second and third part of the duodenum. The endoscope was then withdrawn. The 2nd and 3rd part of the duodenal and the duodenal bulb were normal. Duoden al biopsies were obtained The pre-pyloric area antrum and body showed mild gastritis with some hyperemia. Gastric biopsies were obtained. On retroflexion the fundus and cardia were normal. The endoscope was then straightened withdrawn into distal esophagus Patient had a 1-2 cm sliding-type hiatal hernia with slightly irregular squamocolumnar junction minimal grade a erosive esophagitis GE junction biopsies were obtained. The remaining distal and proximal esophagus and oropharynx were unremarkable The patient tolerated the procedure well without difficulty. COMPLICATIONS : None SPECIMENS: Duodenal biopsies Gastric biopsies GE junction biopsies DISPOSITION: Stable D/C to home PLAN: 1. Await for biopsy result 2. Will place pt on Protonix 40 mg p.o. daily 3. Lifestyle and dietary modifications for GERD 4. DC aspirin NSAIDs smoking alcohol 5. Outpatient follow up with me in 4-6 weeks to review results and discuss further management ARIANA ROLAND MD Aug 17, 2025 15:39
== END 2025-08-17 14:20 | disposition home or self-care (01) ==
LOC: GI 11:28
PROVIDERS: ATTEND Internal Medicine Gastroenterology
DX: K21.9 Gastro-esophageal reflux disease without esophagitis (principal); K29.50 Unspecified chronic gastritis without bleeding; R10.13 Epigastric pain; K22.11 Ulcer of esophagus with bleeding; K44.9 Diaphragmatic hernia without obstruction or gangrene; F17.200 Nicotine dependence, unspecified, uncomplicated; R11.2 Nausea with vomiting, unspecified; J45.909 Unspecified asthma, uncomplicated; F41.9 Anxiety disorder, unspecified; F32.A Depression, unspecified; E66.9 Obesity, unspecified; Z68.31 Body mass index [BMI] 31.0-31.9, adult; G47.30 Sleep apnea, unspecified; I10 Essential (primary) hypertension; Z79.899 Other long term (current) drug therapy; Z98.890 Other specified postprocedural states
CPT/HCPCS: 36415; 43239; 80053; 81001; 81025; 85025; 85610; 85730; 88305; 88342; J2704; J3010; J7030

== ENCOUNTER 2025-09-10 12:59 | Day surgery (SDC) | payer BC, MEDICAID ==
[2025-09-07 08:38] LABS: Hematocrit 38.5 % (36.0-46.0); Hemoglobin 12.8 g/dL (12.2-16.2); Mean Corpuscular Hemoglobin 27.1 pg (28.0-32.0); Mean Corpuscular Volume 81.2 fL (80.0-100.0); Nucleated Red Blood Cells % 0.0 %
[2025-09-07 08:41] LABS: Urine Protein, UAD Negative (Negative)
[2025-09-07 08:58] LABS: INR 0.99 (0.9-1.15); Partial Thromboplastin Time 27.6 SEC (24.5-34.5); Prothrombin Time 10.5 sec (9.3-11.8)
[2025-09-07 09:46] LABS: Alanine Aminotransferase 28 U/L (7-40); Alkaline Phosphatase 88 U/L (46-116); Anion Gap 8 (5-15); BUN/Creatinine Ratio 13.2 (10.0-20.0); Blood Urea Nitrogen 10 mg/dL (9-23); Calcium 9.4 mg/dL (8.7-10.4); Carbon Dioxide 26 mmol/L (20-31); Potassium 4.2 mmol/L (3.5-5.1); Sodium 143 mmol/L (136-145); Total Protein 7.6 g/dL (5.7-8.2)
[2025-09-07 09:47] LABS: Albumin 4.7 g/dL (3.2-4.8); Bilirubin, Total 0.4 mg/dL (0.2-1.0)
[2025-09-07 10:39] LABS: Chloride 109 mmol/L (98-107); Glucose 109 mg/dL (74-106)
[~2025-09-10] VITALS: Ht 165.1 cm; Wt 86.2 kg
[~2025-09-10 12:59] MED LIST changes: -SEMA0.5I SC
[2025-09-10] MEDS ORDERED: PROPOFOL 10 MG/ML 20 ML IV ONE ×2 (13:44→14:14)
[2025-09-10] MEDS ORDERED: MIDAZOLAM HCL 2MG/2ML 2ml VIAL (1mg/ml) ONE (13:44)
[2025-09-10] MEDS ORDERED: fentaNYL CITRATE 100 MCG/2 ML VL ONE (14:10)
[2025-09-10 14:20] VITALS: PULSE 90; RESP 15; TEMP 98.2; O2SAT 100
--- NOTE | 2025-09-10 14:24 | DVHOP2 ---
Operative Report DATE OF OPERATION: 09/10/25 PROCEDURE: Colonoscopy with cold biopsy. PREOPERATIVE INDICATION: The patient is a 25 -year-old female undergoing colonoscopy for evaluation of intermittent rectal bleeding and family history of colon cancer at a young age POSTOPERATIVE DIAGNOSES: 1. She had a 1 mm benign-appearing hyperplastic sigmoid excrescence that was removed by cold biopsy forceps 2. Trace two 1+ internal hemorrhoids otherwise completely normal colonoscopy examination up to the cecum and terminal ileum PROCEDURE PERFORMED BY: Ariana Roland M.D. SCOPE: Olympus videocolonoscope. ASA CLASS: 2. PREOPERATIVE MEDICATIONS: Mac Dr. Uzma carson PROCEDURE IN DETAIL: After obtaining an informed consent, the patient was placed on left lateral decubitus position. She was then sedated with the above medications. A rectal examination was performed that was normal. The colonoscope was then passed through the anus into the rectosigmoid and through the descending, transverse, and ascending colon up to the cecum with visualization of the appendiceal orifice, base of the cecum and the ileocecal valve. The colonoscope was then withdrawn. The distal 5-10 cm of the terminal ileum were normal No masses or colitis were seen. There was no diverticular disease. There was no fresh or old blood in the colon There was a tiny hyperplastic sigmoid excrescences that were removed by cold biopsy forceps On retroflexion she had trace to 1+ internal hemorrhoids The patient tolerated the procedure well without difficulty. WITHDRAWAL TIME: 7 minutes QUALITY OF THE PREP: [place] Bowel Prep score: 9. COMPLICATIONS : None SPECIMENS: Tiny sigmoid polyp DISPOSITION: Stable D/C to home PLAN: 1. Repeat colonoscopy base on biopsy result likely in 5-7 years due to family history 2. Resume GI soft diet advance as tolerated 3. Outpatient follow up with me in 2-4 weeks to review results and discuss further management ARIANA ROLAND MD Sep 10, 2025 14:24
[2025-09-10 14:25] VITALS: PULSE 85; RESP 11; O2SAT 100
[2025-09-10 14:35] VITALS: BP 114/75; PULSE 83; RESP 14; O2SAT 97
== END 2025-09-10 14:55 | disposition home or self-care (01) ==
LOC: GI 12:59
PROVIDERS: ATTEND Internal Medicine Gastroenterology
DX: K62.5 Hemorrhage of anus and rectum (principal); K63.5 Polyp of colon; J45.909 Unspecified asthma, uncomplicated; G47.33 Obstructive sleep apnea (adult) (pediatric); F41.9 Anxiety disorder, unspecified; F25.9 Schizoaffective disorder, unspecified; F32.A Depression, unspecified; Z79.899 Other long term (current) drug therapy; Z98.890 Other specified postprocedural states; Z88.1 Allergy status to other antibiotic agents; Z88.8 Allergy status to other drugs, medicaments and biological substances; Z80.0 Family history of malignant neoplasm of digestive organs
CPT/HCPCS: 36415; 45380; 80053; 81001; 81025; 85025; 85610; 85730; J1100; J2250; J2704; J3010; J7030

== ENCOUNTER → 2025-10-18 | Outpatient (CLI) | payer BC, MEDICAID ==
[2025-10-20 05:08] LABS: Chlamydia Trachomatis, NAA Negative (Negative); Neisseria gonorrhoeae, NAA Negative (Negative)
== END | disposition home or self-care (01) ==
LOC: LAB 09:43
DX: O03.9 Complete or unspecified spontaneous abortion without complication (principal); Z11.2 Encounter for screening for other bacterial diseases; Z11.3 Encounter for screening for infections with a predominantly sexual mode of transmission
CPT/HCPCS: 36415; 84702